=== PATIENT | female | born 1975 | race Caucasian/White ===

== ENCOUNTER 2019-05-09 13:53 | Outpatient (CLI) | payer OTHER ==
--- NOTE | 2019-05-09 14:46 | MMO ---
Bilateral MAMMO Bilat Diag [facility]. CLINICAL HISTORY: Patient is 43 years old and is seen for diagnostic exam and lump or thickening in the right breast. The patient has the following family history of breast personal history of cancer. The patient has a history of left Stereotatic Biopsy in August, - benign. VIEWS: The views performed were: bilateral craniocaudal with tomosynthesis; bilateral mediolateral oblique with tomosynthesis; and bilateral mediolateral with tomosynthesis. FILMS COMPARED: The present examination has been compared to prior imaging studies performed at [facility] on 05/09/2019, at [facility] on 08/05/2017, at [facility] on 05/18/2018, and at [facility] on 02/08/2017. MAMMOGRAM FINDINGS: There are scattered fibroglandular densities. Finding 1: There is a stable biopsy clip seen in the left breast. There are no suspicious masses, suspicious calcifications, or new areas of architectural distortion. IMPRESSION: FINDING 1: STABLE BIOPSY CLIP IN THE LEFT BREAST IS BENIGN. FINDING 2: FINDING IN THE RIGHT BREAST IS BENIGN. ULTRASOUND THE PALPABLE FINDING. NEGATIVE A ROUTINE FOLLOW-UP MAMMOGRAM IN 1 YEAR IS RECOMMENDED. THE RESULTS OF THIS EXAM WERE SENT TO THE PATIENT. ACR BI-RADS Category 2 - Benign finding MAMMOGRAPHY NOTE: 1. A negative mammogram report should not delay a biopsy if a dominant of clinically suspicious mass is present. 2. Approximately 10% to 15% of breast cancers are not detected by mammography. 3. Adenosis and dense breasts may obscure an underlying neoplasm. Reported by: TRINIDAD SWEET MD Electonically Signed: [id number]
--- NOTE | 2019-05-09 15:39 | ULT ---
RIGHT BREAST ULTRASOUND: HISTORY: The patient presents with a palpable abnormality in the right breast at approximately the 12 o'clock position. FINDINGS: There is no evidence for solid or cystic mass in the region of palpable concern. No mammographic cor relate to the area of palpable concern. IMPRESSION: BIRADS category 2 - benign findings. Continued annual followup mammograms. If the patient develops any new palpable finding before the next annual mammogram, followup ultrasound at that time should be considered. POS: OFF
== END 2019-05-09 13:54 | disposition home or self-care (01) ==
LOC: BICMAMMO 13:53
PROVIDERS: ATTEND Family Medicine
DX: N63.10 Unspecified lump in the right breast, unspecified quadrant (principal); Z80.3 Family history of malignant neoplasm of breast; Z98.890 Other specified postprocedural states
CPT/HCPCS: 77066; G0279